=== PATIENT | male | born 1990 | race Caucasian/White ===

== ENCOUNTER 2018-10-17 00:02 | Emergency (ER) | payer SELFPAY ==
[~2018-10-17] VITALS: Ht 177.8 cm; Wt 86.4 kg
[2018-10-17] MEDS ORDERED: POTASSIUM99 MG PO (00:25)
[2018-10-17 00:49] LABS: HEMATOCRIT 44.2 % (39.0-50.0); HEMOGLOBIN 14.8 g/dl (14.0-18.0); IMMATURE GRANULOCYTES 0.8 % (0.0-5.0); MEAN CELL VOLUME 83.9 fL CALC (80.0-100.0); MEAN CORPUSCULAR HGB 28.1 pG CALC (26.0-32.0); MEAN CORPUSCULAR HGB CONC 33.5 g/L CALC (32.0-36.0); NEUT# 3.64 thou/uL (1.82-7.42); RED BLOOD COUNT 5.27 mill/uL (4.70-6.10); RED CELL DISTRI WIDTH 14.5 % (11.5-15.5)
[2018-10-17 01:12] LABS: ALKALINE PHOSPHATASE 160 u/l (38-126); ANION GAP 11 (6-22 (CALC)); BILIRUBIN, TOTAL 0.5 mg/dL (0.0-1.4); BUN 15 mg/dL (9-20); BUN/CREATININE RATIO 31 (12-20 (CALC)); CARBON DIOXIDE 23 mmol/l (22-30); CHLORIDE 113 mmol/l (95-108); CPK 60 u/l (52-200); CREATININE 0.5 mg/dL (0.7-1.3); GFR > 60 ML/MIN (>=60 (CALC)); GFR FOR AFR.AMER. > 60 ML/MIN (>=60 (CALC)); MAGNESIUM 1.5 mg/dL (1.6-2.3); POTASSIUM 3.2 mmol/l (3.5-5.1); SGOT/AST 26 u/l (17-59); SODIUM 143 mmol/l (137-146); TOTAL PROTEIN 7.7 g/dL (6.3-8.2)
[2018-10-17] MEDS ORDERED: K-DUR/KLOR-CON20 MEQ PO (01:27)
[2018-10-17 02:00] VITALS: BP 149/70
== END 2018-10-17 02:01 | disposition home or self-care (01) | DRG 641 ==
LOC: ED 00:02
PROVIDERS: Family Medicine
DX: E87.6 Hypokalemia (principal); R25.2 Cramp and spasm